=== PATIENT | male | born 1935 | race Hispanic/Latino ===

== ENCOUNTER 2017-11-24 02:36 | Inpatient (IN) | payer MEDICARE ==
[2017-11-24] MEDS ORDERED: ZOFRAN ONE (02:47)
[2017-11-24] MEDS ORDERED: NACL 0.9% 1000 ML 1,000 ML IV ONE ×3 (03:07→06:13)
[2017-11-24] MEDS ORDERED: NACL 0.9% 1000 ML 1,000 ML ONE (03:11)
[2017-11-24] MEDS ORDERED: ZOFRAN IV ONE (03:11)
--- NOTE | 2017-11-24 03:11 | Emergency Department Report ---
ED Abdominal Pain HPI - General Chief Complaint: Nausea/Vomiting/Diarrhea Stated Complaint: V/D Time Seen by Provider: 11/24/17 03:03 Source: patient, EMS Mode of arrival: Stretcher Limitations: No Limitations - History of Present Illness Initial Comments: Patient is a 82 is old male presented today with a chief complaint abdominal pain, crampy, diffuse associated with nausea vomiting and watery diarrhea. Patient denied any fever and no urinary symptoms. MD Complaint: abdominal pain -: Gradual, Last night Location: diffuse Radiation: none Migration to: no migration Severity scale (0 -10): 3 Quality: cramping Consistency: intermittent Associated Symptoms: nausea, vomiting, diarrhea. denies: chills, constipation, dysuria, hematemesis, hematochezia, melena, hematuria, anorexia, syncope - Related Data Home Medications Medication Instructions Recorded Confirmed Last Taken Amlodipine Besylate [Norvasc] 5 mg PO QDAY 11/24/17 11/24/17 Unknown Aspirin [Adult Low Dose Aspirin EC] 81 mg PO QDAY 11/24/17 11/24/17 Unknown Finasteride [Proscar] 5 mg PO QDAY 11/24/17 11/24/17 Unknown Metoprolol [Lopressor TAB] 12.5 mg PO BID 11/24/17 11/24/17 Unknown Nitroglycerin [Nitrostat] 0.4 mg SL Q5M PRN 11/24/17 11/24/17 Unknown Pantoprazole [Protonix TAB] 40 mg PO HS 11/24/17 11/24/17 11/23/17 Simvastatin [Zocor TAB] 40 mg PO DAILY 11/24/17 11/24/17 Unknown Tamsulosin HCl [Flomax] 0.4 mg PO HS 11/24/17 11/24/17 Unknown Previous Rx's Medication Instructions Recorded Last Taken Type Levofloxacin [Levaquin TAB] 500 mg PO DAILY #7 day 11/25/17 Unknown Rx metroNIDAZOLE [Flagyl] 500 mg PO TID #7 day 11/25/17 Unknown Rx Allergies Allergy/AdvReac Type Severity Reaction Status Date / Time No Known Allergies Allergy Verified 11/24/17 03:05 ED Review of Systems ROS: Stated complaint: V/D Other details as noted in HPI Comment: All other systems reviewed and negative Constitutional: denies: chills, fever Respiratory: denies: cough Cardiovascular: denies: chest pain, palpitations, dyspnea on exertion Gastrointestinal: abdominal pain, nausea, vomiting, diarrhea. denies: constipation, hematemesis, melena, hematochezia Musculoskeletal: denies: back pain Neurological: denies: headache, weakness, numbness ED Past Medical Hx - Past Medical History Previous Medical History?: Yes Hx Hypertension: Yes Additional medical history: high cholesterol - Surgical History Past Surgical History?: Yes Hx Coronary Stent: Yes (x3) - Social History Smoking Status: Never Smoker Substance Use Type: Alcohol - Medications Home Medications: Home Medications Medication Instructions Recorded Confirmed Last Taken Type Amlodipine Besylate [Norvasc] 5 mg PO QDAY 11/24/17 11/24/17 Unknown History Aspirin [Adult Low Dose Aspirin EC] 81 mg PO QDAY 11/24/17 11/24/17 Unknown History Finasteride [Proscar] 5 mg PO QDAY 11/24/17 11/24/17 Unknown History Metoprolol [Lopressor TAB] 12.5 mg PO BID 11/24/17 11/24/17 Unknown History Nitroglycerin [Nitrostat] 0.4 mg SL Q5M PRN 11/24/17 11/24/17 Unknown History Pantoprazole [Protonix TAB] 40 mg PO HS 11/24/17 11/24/17 11/23/17 History Simvastatin [Zocor TAB] 40 mg PO DAILY 11/24/17 11/24/17 Unknown History Tamsulosin HCl [Flomax] 0.4 mg PO HS 11/24/17 11/24/17 Unknown History Levofloxacin [Levaquin TAB] 500 mg PO DAILY #7 day 11/25/17 Unknown Rx metroNIDAZOLE [Flagyl] 500 mg PO TID #7 day 11/25/17 Unknown Rx ED Physical Exam - General Limitations: No Limitations General appearance: alert, in no apparent distress - Eye Eye exam: Present: normal appearance - ENT ENT exam: Present: mucous membranes dry - Neck Neck exam: Present: normal inspection, full ROM. Absent: tenderness, meningismus, lymphadenopathy, thyromegaly - Respiratory Respiratory exam: Present: normal lung sounds bilaterally. Absent: respiratory distress, wheezes, rales, rhonchi, stridor, chest wall tenderness, accessory muscle use, decreased breath sounds, prolonged expiratory - Cardiovascular Cardiovascular Exam: Present: tachycardia - GI/Abdominal GI/Abdominal exam: Present: soft, normal bowel sounds. Absent: distended, tenderness, guarding, rebound, rigid, diminished bowel sounds, organomegaly, mass, bruit, pulsatile mass, hernia - Extremities Exam Extremities exam: Present: normal inspection, full ROM, normal capillary refill - Back Exam Back exam: Present: normal inspection, full ROM. Absent: tenderness, CVA tenderness (R), CVA tenderness (L), muscle spasm, paraspinal tenderness - Neurological Exam Neurological exam: Present: alert, oriented X3, CN II-XII intact, normal gait - Skin Skin exam: Present: warm, dry, intact ED Course Vital Signs 11/24/17 11/24/17 11/24/17 03:00 03:10 03:15 Temperature Pulse Rate 129 H 121 H Respiratory 11 L 18 16 Rate Blood Pressure 148/76 139/76 Blood Pressure [Right] O2 Sat by Pulse 97 98 95 Oximetry 11/24/17 11/24/17 11/24/17 03:30 03:45 04:00 Temperature Pulse Rate 110 H 106 H 106 H Respiratory 19 14 21 Rate Blood Pressure 174/75 173/75 164/69 Blood Pressure [Right] O2 Sat by Pulse 97 Oximetry 11/24/17 11/24/17 11/24/17 04:15 04:19 04:30 Temperature 98.1 F Pulse Rate 118 H 110 H Respiratory 20 7 L Rate Blood Pressure 168/83 166/81 Blood Pressure [Right] O2 Sat by Pulse 97 95 Oximetry 11/24/17 11/24/17 11/24/17 04:45 05:00 05:56 Temperature Pulse Rate 123 H Respiratory 14 Rate Blood Pressure 177/84 177/84 177/84 Blood Pressure [Right] O2 Sat by Pulse 98 98 97 Oximetry 11/24/17 11/24/17 11/24/17 06:00 06:15 06:30 Temperature Pulse Rate 118 H 120 H 125 H Respiratory 13 10 L 13 Rate Blood Pressure 163/76 149/78 155/81 Blood Pressure [Right] O2 Sat by Pulse 95 97 94 Oximetry 11/24/17 11/24/17 11/24/17 07:00 07:30 08:00 Temperature Pulse Rate 120 H 115 H 122 H Respiratory 13 11 L 10 L Rate Blood Pressure 152/74 159/72 154/79 Blood Pressure [Right] O2 Sat by Pulse 93 95 95 Oximetry 11/24/17 11/24/17 11/24/17 08:30 09:00 09:30 Temperature Pulse Rate 124 H 106 H 101 H Respiratory 11 L 21 19 Rate Blood Pressure 158/67 162/66 162/66 Blood Pressure [Right] O2 Sat by Pulse 96 96 96 Oximetry 11/24/17 11/24/17 09:59 10:18 Temperature 98.8 F Pulse Rate 114 H Respiratory 18 Rate Blood Pressure 162/70 Blood Pressure 134/66 [Right] O2 Sat by Pulse 99 Oximetry ED Medical Decision Making - Lab Data Result diagrams: 11/25/17 04:55 11/25/17 04:55 - Medical Decision Making Patient care transferred to Dr Francois Maldonado. Critical care attestation.: If time is entered above; I have spent that time in minutes in the direct care of this critically ill patient, excluding procedure time. ED Disposition Clinical Impression: Colitis, Abdominal pain Disposition: OP ADMIT IP TO THIS HOSP Is pt being admited?: Yes Condition: Stable
[2017-11-24 03:29] LABS: Hemoglobin 15.4 gm/dl (11.8-15.2); Mean Corpuscular HGB Conc 33 % (32-34); Mean Corpuscular Hemoglobin 31 pg (28-32); Mean Corpuscular Volume 93 fl (84-94); Platelet Count 236 K/mm3 (140-440); Red Blood Count 4.93 M/mm3 (3.65-5.03); Red Cell Distribution Width 13.9 % (13.2-15.2); White Blood Count 14.2 K/mm3 (4.5-11.0)
[2017-11-24 03:50] LABS: Alanine Aminotransferase 18 units/L (7-56); Albumin 4.2 g/dL (3.9-5); Albumin/Globulin Ratio 1.8 %; Alkaline Phosphatase 82 units/L (35-129); BUN/Creatinine Ratio 15; Blood Urea Nitrogen 16 mg/dL (9-20); Carbon Dioxide 23 mmol/L (22-30); Glucose 172 mg/dL (75-100); Lipase 42 units/L (13-60); Total Protein 6.6 g/dL (6.3-8.2)
[2017-11-24 03:51] LABS: Anion Gap 21 mmol/L; Chloride 102.7 mmol/L (98-107); Potassium 4.2 mmol/L (3.6-5.0); Sodium 142 mmol/L (137-145)
[2017-11-24 04:01] LABS: Bilirubin,Direct < 0.2 mg/dL (0-0.2); Bilirubin,Indirect 0.3 mg/dL
[2017-11-24] MEDS ORDERED: NACL ONE (04:34)
[2017-11-24 04:44] LABS: Bilirubin,Urine NEG (Negative); Blood,Urine NEG (Negative); Ketones,Urine NEG (Negative); Leukocyte Esterase,Urine NEG (Negative); Nitrite,Urine NEG (Negative); Protein,Urine <15 mg/dL mg/dL (Negative); Urobilinogen,Urine < 2.0 mg/dL (<2.0)
[2017-11-24] MEDS ORDERED: REGLAN ONE (04:49)
[2017-11-24] MEDS ORDERED: REGLAN IV ONE (04:55)
[2017-11-24] MEDS ORDERED: ZOSYN/NS 3.375GM/50ML 3.375 GM/50 ML BAG IV SCH (06:00)
--- NOTE | 2017-11-24 06:03 | Cat Scan Report ---
FINAL REPORT EXAM: CT ABDOMEN PELVIS W CON HISTORY: abdominal pain TECHNIQUE: CT images are acquired through the Abdomen and Pelvis arterial and delayed phases following intravenous administration of contrast. Transaxial, coronal and sagittal reformations are provided. PRIORS: 06/04/2015 FINDINGS: Partially visualized intrathoracic contents are unremarkable. A few scattered subcentimeter hepatic cysts are unchanged from prior. 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 The liver, gallbladder, pancreas, spleen, and adrenal glands are otherwise unremarkable. Kidneys show no worrisome lesions, hydronephrosis, or calculi. Mild right upper pole renal cortical scarring/irregularity. Mild prostatic mass effect on the base of the urinary bladder. Urinary bladder is otherwise unremarkable. Small and large bowel are normal in caliber. There fluid in the cecum and ascending colon and mild mucosal thickening is suggested in the ascending colon. No pericolonic stranding or edema. The an 8 x 4 millimeter lymph node within the mesorectal fat may be slightly more prominent compared to prior on axial series 3, image 167. Suggested mild wall thickening and irregularity at the left lateral aspect of the rectum on axial images 167-169. Appendix is normal. No free air, free fluid, or mesenteric lymphadenopathy identified. Aorta is normal in course and caliber with scattered atherosclerosis. Superficial soft tissues are unremarkable. No acute or aggressive appearing skeletal findings. IMPRESSION: Fluid in the cecum and ascending colon with mild suggested mucosal thickening in the ascending colon may be infectious. No findings of abena colitis. No pneumoperitoneum or abscess formation. Mild rectal wall thickening with adjacent prominent lymph node in the mesorectal fat. Differential diagnosis includes malignancy. Colonoscopy is suggested if not recently performed. Notification initiated via [employer] behavior support specialist immediately following this dictation on 11/24/2017.
[2017-11-24 06:26] LABS: Basophils % (Manual) 0 % (0.0-1.8); Blastocytes % (Manual) 0 %; Eosinophils % (Manual) 0 % (0.0-4.3)
[2017-11-24 06:28] LABS: Anisocytosis RARE
[2017-11-24 06:29] LABS: Diff Status Complete; Platelet Estimate Consistent w Auto
--- NOTE | 2017-11-24 06:35 | Emergency Department Report ---
Blank Doc - Documentation Documentation: I was asked by my colleague, Dr. Mcmillan, to follow-up with patient's CT scan results of the abdomen and pelvis. The results came back showing that there is some signs of possible colitis that also could be infectious in etiology. The patient also has some abdominal/pelvic lymphadenopathy and they recommend that a colonoscopy should be done to rule out malignancy. I went in to see the patient and to give him the CT scan results. However the patient continues to have moderate tachycardia into the 120s. It may be secondary to pain or dehydration but with these abnormal vitals, do not feel comfortable discharging the patient home. More IV fluid resuscitation has been added and the patient will be admitted to the hospital for further evaluation and treatment.
[2017-11-24] MEDS ORDERED: ALUM-MAG HYDROX-SIMETH 200-200-20MG/5ML ONE (07:47)
[2017-11-24] MEDS ORDERED: LIDOCAINE VISCOUS 2% ONE (07:47)
[2017-11-24] MEDS ORDERED: ALUM-MAG HYDROX-SIMETH 200-200-20MG/5ML PO ONE (07:50)
[2017-11-24] MEDS ORDERED: LIDOCAINE VISCOUS 2% PO ONE (07:50)
[2017-11-24] MEDS ORDERED: MORPHINE IV PRN (08:15)
--- NOTE | 2017-11-24 08:15 | History and Physical Report ---
<LEONID BUTLER - Last Filed: 11/24/17 10:37> History of Present Illness Date of examination: 11/24/17 Date of admission: 11/24/2017 Chief complaint: abdominal pain nausea and vomiting History of present illness: Patient is a 82 years old male with past medical histroy of hypertension and hyperlipidemia who presents to the emergency department for diarrhea, nausea and vomiting.Patient reports having non stop intermittent generalized abdominal pain that initially felt like gas pains but it has now progressed to being nearly constant; associated with nausea vomiting and watery diarrhea.The pain is described as a constant dull, diffuse pain that intermittently becomes sharp and well localized. The sharp pain tends to occur in different locations at different times. The intensity of the pain has been increasing since this morning and on pain scale she now rates the pain at 5 out of 10; worse with palpation. He denies fever, wt loss, CP, dizziness, bloody stools, dysuria, hematemesis, hematochezia, hematuria, anorexia, syncope. Past History Past Medical History: hypertension, hyperlipidemia Past Surgical History: Other (stent placement ) Social history: denies: smoking, alcohol abuse Family history: hypertension Medications and Allergies Allergies Allergy/AdvReac Type Severity Reaction Status Date / Time No Known Allergies Allergy Verified 11/24/17 03:05 Home Medications Medication Instructions Recorded Confirmed Last Taken Type Amlodipine Besylate [Norvasc] 5 mg PO QDAY 11/24/17 11/24/17 Unknown History Aspirin [Adult Low Dose Aspirin EC] 81 mg PO QDAY 11/24/17 11/24/17 Unknown History Finasteride [Proscar] 5 mg PO QDAY 11/24/17 11/24/17 Unknown History Metoprolol [Lopressor TAB] 12.5 mg PO BID 11/24/17 11/24/17 Unknown History Nitroglycerin [Nitrostat] 0.4 mg SL Q5M PRN 11/24/17 11/24/17 Unknown History Pantoprazole [Protonix TAB] 40 mg PO HS 11/24/17 11/24/17 11/23/17 History Simvastatin [Zocor TAB] 40 mg PO DAILY 11/24/17 11/24/17 Unknown History Tamsulosin HCl [Flomax] 0.4 mg PO HS 11/24/17 11/24/17 Unknown History Active Meds: Active Medications Piperacillin Sod/Tazobactam Sod (Zosyn/Ns 3.375gm/50ml) 3.375 gm in 50 mls @ 100 mls/hr IV Q6HR [place] Last Admin: 11/24/17 06:15 Dose: 100 mls/hr Sodium Chloride (Nacl 0.9% 1000 Ml) 1,000 mls @ 250 mls/hr IV ONCE ONE Stop: 11/24/17 10:12 Review of Systems Constitutional: no weight loss, no weight gain, no fever, no chills Ears, nose, mouth and throat: no nasal congestion, no nasal discharge Cardiovascular: no chest pain, no syncope, no lightheadedness, no shortness of breath Respiratory: no shortness of breath, no dyspnea on exertion Gastrointestinal: nausea, vomiting, diarrhea, no constipation, no hematemesis, no melena, no hematochezia, no loss of appetite Genitourinary Male: no hematuria, no flank pain Rectal: no incontinence, no bleeding Musculoskeletal: no neck pain, no shooting arm pain, no arm numbness/tingling Integumentary: no wounds, no jaundice, no boils Neurological: no weakness, no parathesias, no numbness Psychiatric: no anxiety, no memory loss, no sleep disturbances Endocrine: no cold intolerance, no heat intolerance, no polyphagia Hematologic/Lymphatic: no easy bruising, no easy bleeding Allergic/Immunologic: no urticaria, no allergic rhinitis Exam - Constitutional Vitals: Temp Pulse Resp BP Pulse Ox 98.1 F 125 H 13 155/81 94 11/24/17 04:19 11/24/17 06:30 11/24/17 06:30 11/24/17 06:30 11/24/17 06:30 General appearance: Present: no acute distress - EENT Eyes: Present: PERRL ENT: hearing intact - Neck Neck: Present: supple - Respiratory Respiratory effort: normal Respiratory: bilateral: CTA - Cardiovascular Heart rate: 120 (tachycardia) Rhythm: regular Heart Sounds: Present: S1 & S2 - Abdominal General gastrointestinal: Present: soft, non-tender Localized gastrointestinal: tender: RLQ, LLQ Male genitourinary: Present: deferred - Rectal Rectal Exam: deferred - Integumentary Integumentary: Present: clear, warm, dry - Musculoskeletal Musculoskeletal: strength equal bilaterally - Psychiatric Psychiatric: appropriate mood/affect - Neurologic Neurologic: CNII-XII intact - Allied Health Allied health notes reviewed: nursing Results - Labs CBC & Chem 7: 11/24/17 03:15 11/24/17 03:15 Labs: Laboratory Last Values WBC 14.2 K/mm3 (4.5-11.0) H 11/24/17 03:15 RBC 4.93 M/mm3 (3.65-5.03) 11/24/17 03:15 Hgb 15.4 gm/dl (11.8-15.2) H 11/24/17 03:15 Hct 46.0 % (35.5-45.6) H 11/24/17 03:15 MCV 93 fl (84-94) 11/24/17 03:15 MCH 31 pg (28-32) 11/24/17 03:15 MCHC 33 % (32-34) 11/24/17 03:15 RDW 13.9 % (13.2-15.2) 11/24/17 03:15 Plt Count 236 K/mm3 (140-440) 11/24/17 03:15 Add Manual Diff Complete 11/24/17 03:15 Total Counted 100 11/24/17 03:15 Seg Neutrophils % Cleaners 11/24/17 03:15 Seg Neuts % (Manual) 93.0 % (40.0-70.0) H 11/24/17 03:15 Band Neutrophils % 0 % 11/24/17 03:15 Lymphocytes % (Manual) 3.0 % (13.4-35.0) L 11/24/17 03:15 Reactive Lymphs % (Man) 0 % 11/24/17 03:15 Monocytes % (Manual) 4.0 % (0.0-7.3) 11/24/17 03:15 Eosinophils % (Manual) 0 % (0.0-4.3) 11/24/17 03:15 Basophils % (Manual) 0 % (0.0-1.8) 11/24/17 03:15 Metamyelocytes % 0 % 11/24/17 03:15 Myelocytes % 0 % 11/24/17 03:15 Promyelocytes % 0 % 11/24/17 03:15 Blast Cells % 0 % 11/24/17 03:15 Nucleated RBC % Not Reportable 11/24/17 03:15 Seg Neutrophils # Man 13.2 K/mm3 (1.8-7.7) H 11/24/17 03:15 Band Neutrophils # 0.0 K/mm3 11/24/17 03:15 Lymphocytes # (Manual) 0.4 K/mm3 (1.2-5.4) L 11/24/17 03:15 Abs React Lymphs (Man) 0.0 K/mm3 11/24/17 03:15 Monocytes # (Manual) 0.6 K/mm3 (0.0-0.8) 11/24/17 03:15 Eosinophils # (Manual) 0.0 K/mm3 (0.0-0.4) 11/24/17 03:15 Basophils # (Manual) 0.0 K/mm3 (0.0-0.1) 11/24/17 03:15 Metamyelocytes # 0.0 K/mm3 11/24/17 03:15 Myelocytes # 0.0 K/mm3 11/24/17 03:15 Promyelocytes # 0.0 K/mm3 11/24/17 03:15 Blast Cells # 0.0 K/mm3 11/24/17 03:15 WBC Morphology Not Reportable 11/24/17 03:15 Hypersegmented Neuts Not Reportable 11/24/17 03:15 Hyposegmented Neuts Not Reportable 11/24/17 03:15 Hypogranular Neuts Not Reportable 11/24/17 03:15 Smudge Cells Not Reportable 11/24/17 03:15 Toxic Granulation Not Reportable 11/24/17 03:15 Toxic Vacuolation Not Reportable 11/24/17 03:15 Dohle Bodies Not Reportable 11/24/17 03:15 Pelger-Huet Anomaly Not Reportable 11/24/17 03:15 Dari Rods Not Reportable 11/24/17 03:15 Platelet Estimate Consistent w auto 11/24/17 03:15 Clumped Platelets Not Reportable 11/24/17 03:15 Plt Clumps, EDTA Not Reportable 11/24/17 03:15 Large Platelets Not Reportable 11/24/17 03:15 Giant Platelets Not Reportable 11/24/17 03:15 Platelet Satelliting Not Reportable 11/24/17 03:15 Plt Morphology Comment Not Reportable 11/24/17 03:15 RBC Morphology Not Reportable 11/24/17 03:15 Dimorphic RBCs Not Reportable 11/24/17 03:15 Polychromasia Not Reportable 11/24/17 03:15 Hypochromasia Not Reportable 11/24/17 03:15 Poikilocytosis Not Reportable 11/24/17 03:15 Anisocytosis Rare 11/24/17 03:15 Microcytosis Not Reportable 11/24/17 03:15 Macrocytosis Not Reportable 11/24/17 03:15 Spherocytes Not Reportable 11/24/17 03:15 Pappenheimer Bodies Not Reportable 11/24/17 03:15 Sickle Cells Not Reportable 11/24/17 03:15 Target Cells Not Reportable 11/24/17 03:15 Tear Drop Cells Not Reportable 11/24/17 03:15 Ovalocytes Not Reportable 11/24/17 03:15 Helmet Cells Not Reportable 11/24/17 03:15 [place] Bodies Not Reportable 11/24/17 03:15 [place] Rings Not Reportable 11/24/17 03:15 Aries Cells Not Reportable 11/24/17 03:15 Bite Cells Not Reportable 11/24/17 03:15 Crenated Cell Not Reportable 11/24/17 03:15 Elliptocytes Not Reportable 11/24/17 03:15 Acanthocytes (Spur) Not Reportable 11/24/17 03:15 Rouleaux Not Reportable 11/24/17 03:15 Hemoglobin C Crystals Not Reportable 11/24/17 03:15 Schistocytes Not Reportable 11/24/17 03:15 Malaria parasites Not Reportable 11/24/17 03:15 Javy Bodies Not Reportable 11/24/17 03:15 Hem Pathologist Commnt No 11/24/17 03:15 Sodium 142 mmol/L (137-145) 11/24/17 03:15 Potassium 4.2 mmol/L (3.6-5.0) 11/24/17 03:15 Chloride 102.7 mmol/L (98-107) 11/24/17 03:15 Carbon Dioxide 23 mmol/L (22-30) 11/24/17 03:15 Anion Gap 21 mmol/L 11/24/17 03:15 BUN 16 mg/dL (9-20) 11/24/17 03:15 Creatinine 1.1 mg/dL (0.8-1.5) 11/24/17 03:15 Estimated GFR > 60 ml/min 11/24/17 03:15 BUN/Creatinine Ratio 15 % 11/24/17 03:15 Glucose 172 mg/dL (75-100) H 11/24/17 03:15 Calcium 9.0 mg/dL (8.4-10.2) 11/24/17 03:15 Total Bilirubin 0.50 mg/dL (0.1-1.2) 11/24/17 03:15 Direct Bilirubin < 0.2 mg/dL (0-0.2) 11/24/17 03:15 Indirect Bilirubin 0.3 mg/dL 11/24/17 03:15 AST 19 units/L (5-40) 11/24/17 03:15 ALT 18 units/L (7-56) 11/24/17 03:15 Alkaline Phosphatase 82 units/L (35-129) 11/24/17 03:15 Total Protein 6.6 g/dL (6.3-8.2) 11/24/17 03:15 Albumin 4.2 g/dL (3.9-5) 11/24/17 03:15 Albumin/Globulin Ratio 1.8 % 11/24/17 03:15 Lipase 42 units/L (13-60) 11/24/17 03:15 Urine Color Yellow (Yellow) 11/24/17 04:25 Urine Turbidity Clear (Clear) 11/24/17 04:25 Urine pH 6.0 (5.0-7.0) 11/24/17 04:25 Ur Specific [place] 1.012 (1.003-1.030) 11/24/17 04:25 Urine Protein <15 mg/dl mg/dL (Negative) 11/24/17 04:25 Urine Glucose (UA) Neg mg/dL (Negative) 11/24/17 04:25 Urine Ketones Neg mg/dL (Negative) 11/24/17 04:25 Urine Blood Neg (Negative) 11/24/17 04:25 Urine Nitrite Neg (Negative) 11/24/17 04:25 Urine Bilirubin Neg (Negative) 11/24/17 04:25 Urine Urobilinogen < 2.0 mg/dL (<2.0) 11/24/17 04:25 Ur Leukocyte Esterase Neg (Negative) 11/24/17 04:25 Urine WBC (Auto) 2.0 /HPF (0.0-6.0) 11/24/17 04:25 Urine RBC (Auto) 2.0 /HPF (0.0-6.0) 11/24/17 04:25 U Epithel Cells (Auto) < 1.0 /HPF (0-13.0) 11/24/17 04:25 - Imaging and Cardiology CT scan - abdomen: image reviewed (fluid in the cecum and ascending colon with mild suggested mucosal thickening in the ascending colon may be infectious.mild rectal wall thickening with adjacent prominent lymph node in the mesorectal fat. ) Assessment and Plan Assessment and plan: Patient is a 82 years old male with past medical histroy of hypertension and hyperlipidemia who presents to the emergency department for diarrhea, nausea and vomiting.Patient reports having non stop intermittent generalized abdominal pain that initially felt like gas pains but it has now progressed to being nearly constant; associated with nausea vomiting and watery diarrhea. Sepsis Patietn meet sepsis criteria with tachycardia, leukocytosis Blood cultres and lactic acid collected prior antibiotic CT scan of the abdomen and pelvis showed that there is some signs of possible colitis that also could be infectious in etiology. Aggressive fluid resuscitation Initiated IV empiric Flagyl and Levaquin Supportive care Intractable vomiting with nausea Most likely due to colitis Started on PPI GI consult for possible EGD and colonoscopy Possible colitis CT scan of the abdomen and pelvis showed that there is some signs of possible colitis that also could be infectious in etiology. Started on Flagyl and Levaquin Diarrhea Most likely due to colitis Started Flagyl and Levaquin IV fluid hydration Abdominal lymphadenopathy The patient also has some abdominal/pelvic lymphadenopathy and they recommend that a colonoscopy should be done to rule out malignancy. GI consulted for possible colonoscopy Hypertension Review of antihypertensive medication IV hydralazine for >160 Closely monitor Blood pressure hyperlipidemia Resume home antilipid agents GERD Started on Protonix DVT prophylaxis Lovenox Advance Directives: Yes VTE prophylaxis?: Chemical Contraindication Mechanical VTE Prophylaxis: Treatment Not Indicated Plan of care discussed with patient/family: Yes <EVANGELINA ALANIS R - Last Filed: 11/25/17 00:33> History of Present Illness Date of admission: 11/24/17 08:15 Medications and Allergies Active Meds: Active Medications Acetaminophen (Tylenol) 650 mg PO Q4H PRN PRN Reason: Pain MILD(1-3)/Fever >100.5/SAENZ Acetaminophen/Codeine Phosphate (Tylenol #3) 1 tab PO Q6H PRN PRN Reason: Pain Al Hydrox/Mg Hydrox/Simethicone (Alum-Mag Hydrox-Simeth [phone]/5ml) 30 ml PO Q6HR PRN PRN Reason: Indigestion Last Admin: 11/24/17 20:18 Dose: 30 ml Clopidogrel Bisulfate (Plavix) 75 mg PO QDAY [facility] [place] Last Admin: 11/24/17 10:20 Dose: Not Given Enoxaparin Sodium (Lovenox) 40 mg SUB-Q QDAY [facility] [place] Last Admin: 11/24/17 10:20 Dose: 40 mg Sodium Chloride (Nacl 0.9% 1000 Ml) 1,000 mls @ 100 mls/hr IV DIRECT [place] Levofloxacin/Dextrose (Levaquin 500mg/100ml) 500 mg in 100 mls @ 100 mls/hr IV Q24HR [facility] [place] PRN Reason: Protocol Last Admin: 11/24/17 10:19 Dose: 100 mls/hr Metronidazole (Flagyl 500 Mg/100 Ml) 500 mg in 100 mls @ 100 mls/hr IV Q6HR [facility] [place] Last Admin: 11/24/17 17:25 Dose: 100 mls/hr Loperamide HCl (Imodium) 2 mg PO Q2H PRN PRN Reason: Diarrhea Last Admin: 11/24/17 20:18 Dose: 2 mg Losartan Potassium (Cozaar) 25 mg PO QDAY [facility] [place] Last Admin: 11/24/17 10:18 Dose: 25 mg Methocarbamol (Robaxin) 500 mg PO BID [facility] [place] Last Admin: 11/24/17 21:23 Dose: 500 mg Morphine Sulfate (Morphine) 2 mg IV Q4H PRN PRN Reason: Pain, Moderate (4-6) Ondansetron HCl (Zofran) 4 mg IV Q4H PRN PRN Reason: Nausea And Vomiting Last Admin: 11/24/17 18:13 Dose: 4 mg Oxybutynin Chloride (Ditropan) 5 mg PO BID [facility] [place] Last Admin: 11/24/17 21:23 Dose: 5 mg Pantoprazole Sodium (Protonix) 40 mg IV DAILY [facility] [place] Zolpidem Tartrate (Ambien) 5 mg PO QHS PRN PRN Reason: Sleep Last Admin: 11/24/17 21:23 Dose: 5 mg Exam - Constitutional Vitals: Temp Pulse Resp BP Pulse Ox 98.7 F 102 H 18 155/70 93 11/24/17 19:07 11/24/17 19:07 11/24/17 19:07 11/24/17 19:07 11/24/17 19:07 Results - Labs CBC & Chem 7: 11/24/17 03:15 11/24/17 03:15 Labs: Laboratory Last Values WBC 14.2 K/mm3 (4.5-11.0) H 11/24/17 03:15 RBC 4.93 M/mm3 (3.65-5.03) 11/24/17 03:15 Hgb 15.4 gm/dl (11.8-15.2) H 11/24/17 03:15 Hct 46.0 % (35.5-45.6) H 11/24/17 03:15 MCV 93 fl (84-94) 11/24/17 03:15 MCH 31 pg (28-32) 11/24/17 03:15 MCHC 33 % (32-34) 11/24/17 03:15 RDW 13.9 % (13.2-15.2) 11/24/17 03:15 Plt Count 236 K/mm3 (140-440) 11/24/17 03:15 Add Manual Diff Complete 11/24/17 03:15 Total Counted 100 11/24/17 03:15 Seg Neutrophils % Cleaners 11/24/17 03:15 Seg Neuts % (Manual) 93.0 % (40.0-70.0) H 11/24/17 03:15 Band Neutrophils % 0 % 11/24/17 03:15 Lymphocytes % (Manual) 3.0 % (13.4-35.0) L 11/24/17 03:15 Reactive Lymphs % (Man) 0 % 11/24/17 03:15 Monocytes % (Manual) 4.0 % (0.0-7.3) 11/24/17 03:15 Eosinophils % (Manual) 0 % (0.0-4.3) 11/24/17 03:15 Basophils % (Manual) 0 % (0.0-1.8) 11/24/17 03:15 Metamyelocytes % 0 % 11/24/17 03:15 Myelocytes % 0 % 11/24/17 03:15 Promyelocytes % 0 % 11/24/17 03:15 Blast Cells % 0 % 11/24/17 03:15 Nucleated RBC % Not Reportable 11/24/17 03:15 Seg Neutrophils # Man 13.2 K/mm3 (1.8-7.7) H 11/24/17 03:15 Band Neutrophils # 0.0 K/mm3 11/24/17 03:15 Lymphocytes # (Manual) 0.4 K/mm3 (1.2-5.4) L 11/24/17 03:15 Abs React Lymphs (Man) 0.0 K/mm3 11/24/17 03:15 Monocytes # (Manual) 0.6 K/mm3 (0.0-0.8) 11/24/17 03:15 Eosinophils # (Manual) 0.0 K/mm3 (0.0-0.4) 11/24/17 03:15 Basophils # (Manual) 0.0 K/mm3 (0.0-0.1) 11/24/17 03:15 Metamyelocytes # 0.0 K/mm3 11/24/17 03:15 Myelocytes # 0.0 K/mm3 11/24/17 03:15 Promyelocytes # 0.0 K/mm3 11/24/17 03:15 Blast Cells # 0.0 K/mm3 11/24/17 03:15 WBC Morphology Not Reportable 11/24/17 03:15 Hypersegmented Neuts Not Reportable 11/24/17 03:15 Hyposegmented Neuts Not Reportable 11/24/17 03:15 Hypogranular Neuts Not Reportable 11/24/17 03:15 Smudge Cells Not Reportable 11/24/17 03:15 Toxic Granulation Not Reportable 11/24/17 03:15 Toxic Vacuolation Not Reportable 11/24/17 03:15 Dohle Bodies Not Reportable 11/24/17 03:15 Pelger-Huet Anomaly Not Reportable 11/24/17 03:15 Dari Rods Not Reportable 11/24/17 03:15 Platelet Estimate Consistent w auto 11/24/17 03:15 Clumped Platelets Not Reportable 11/24/17 03:15 Plt Clumps, EDTA Not Reportable 11/24/17 03:15 Large Platelets Not Reportable 11/24/17 03:15 Giant Platelets Not Reportable 11/24/17 03:15 Platelet Satelliting Not Reportable 11/24/17 03:15 Plt Morphology Comment Not Reportable 11/24/17 03:15 RBC Morphology Not Reportable 11/24/17 03:15 Dimorphic RBCs Not Reportable 11/24/17 03:15 Polychromasia Not Reportable 11/24/17 03:15 Hypochromasia Not Reportable 11/24/17 03:15 Poikilocytosis Not Reportable 11/24/17 03:15 Anisocytosis Rare 11/24/17 03:15 Microcytosis Not Reportable 11/24/17 03:15 Macrocytosis Not Reportable 11/24/17 03:15 Spherocytes Not Reportable 11/24/17 03:15 Pappenheimer Bodies Not Reportable 11/24/17 03:15 Sickle Cells Not Reportable 11/24/17 03:15 Target Cells Not Reportable 11/24/17 03:15 Tear Drop Cells Not Reportable 11/24/17 03:15 Ovalocytes Not Reportable 11/24/17 03:15 Helmet Cells Not Reportable 11/24/17 03:15 [place] Bodies Not Reportable 11/24/17 03:15 [place] Rings Not Reportable 11/24/17 03:15 Aries Cells Not Reportable 11/24/17 03:15 Bite Cells Not Reportable 11/24/17 03:15 Crenated Cell Not Reportable 11/24/17 03:15 Elliptocytes Not Reportable 11/24/17 03:15 Acanthocytes (Spur) Not Reportable 11/24/17 03:15 Rouleaux Not Reportable 11/24/17 03:15 Hemoglobin C Crystals Not Reportable 11/24/17 03:15 Schistocytes Not Reportable 11/24/17 03:15 Malaria parasites Not Reportable 11/24/17 03:15 Javy Bodies Not Reportable 11/24/17 03:15 Hem Pathologist Commnt No 11/24/17 03:15 Sodium 142 mmol/L (137-145) 11/24/17 03:15 Potassium 4.2 mmol/L (3.6-5.0) 11/24/17 03:15 Chloride 102.7 mmol/L (98-107) 11/24/17 03:15 Carbon Dioxide 23 mmol/L (22-30) 11/24/17 03:15 Anion Gap 21 mmol/L 11/24/17 03:15 BUN 16 mg/dL (9-20) 11/24/17 03:15 Creatinine 1.1 mg/dL (0.8-1.5) 11/24/17 03:15 Estimated GFR > 60 ml/min 11/24/17 03:15 BUN/Creatinine Ratio 15 % 11/24/17 03:15 Glucose 172 mg/dL (75-100) H 11/24/17 03:15 Lactic Acid 2.10 mmol/L (0.7-2.0) H* 11/24/17 10:52 Calcium 9.0 mg/dL (8.4-10.2) 11/24/17 03:15 Total Bilirubin 0.50 mg/dL (0.1-1.2) 11/24/17 03:15 Direct Bilirubin < 0.2 mg/dL (0-0.2) 11/24/17 03:15 Indirect Bilirubin 0.3 mg/dL 11/24/17 03:15 AST 19 units/L (5-40) 11/24/17 03:15 ALT 18 units/L (7-56) 11/24/17 03:15 Alkaline Phosphatase 82 units/L (35-129) 11/24/17 03:15 Total Protein 6.6 g/dL (6.3-8.2) 11/24/17 03:15 Albumin 4.2 g/dL (3.9-5) 11/24/17 03:15 Albumin/Globulin Ratio 1.8 % 11/24/17 03:15 Lipase 42 units/L (13-60) 11/24/17 03:15 Urine Color Yellow (Yellow) 11/24/17 04:25 Urine Turbidity Clear (Clear) 11/24/17 04:25 Urine pH 6.0 (5.0-7.0) 11/24/17 04:25 Ur Specific [place] 1.012 (1.003-1.030) 11/24/17 04:25 Urine Protein <15 mg/dl mg/dL (Negative) 11/24/17 04:25 Urine Glucose (UA) Neg mg/dL (Negative) 11/24/17 04:25 Urine Ketones Neg mg/dL (Negative) 11/24/17 04:25 Urine Blood Neg (Negative) 11/24/17 04:25 Urine Nitrite Neg (Negative) 11/24/17 04:25 Urine Bilirubin Neg (Negative) 11/24/17 04:25 Urine Urobilinogen < 2.0 mg/dL (<2.0) 11/24/17 04:25 Ur Leukocyte Esterase Neg (Negative) 11/24/17 04:25 Urine WBC (Auto) 2.0 /HPF (0.0-6.0) 11/24/17 04:25 Urine RBC (Auto) 2.0 /HPF (0.0-6.0) 11/24/17 04:25 U Epithel Cells (Auto) < 1.0 /HPF (0-13.0) 11/24/17 04:25 Assessment and Plan Assessment and plan: I saw and evaluated the patient. I agree with the findings and the plan of care as documented in the Nurse Practitioner's~note .
[2017-11-24] MEDS ORDERED: ZOFRAN IV PRN (08:22)
[2017-11-24] MEDS ORDERED: NACL 0.9% 1000 ML 1,000 ML IV SCH (09:00)
[2017-11-24] MEDS ORDERED: COZAAR ONE (09:50)
[2017-11-24] MEDS ORDERED: ZOFRAN IM PRN (10:12)
[2017-11-24] MEDS: COZAAR PO SCH (10:18)
[2017-11-24] MEDS: LEVAQUIN 500MG/100ML 500 MG/100 ML BAG IV SCH (10:19)
[2017-11-24] MEDS: PLAVIX PO SCH (10:20)
[2017-11-24] MEDS: LOVENOX SUB-Q SCH (10:20)
[2017-11-24] MEDS ORDERED: TYLENOL PO PRN (11:00)
--- NOTE | 2017-11-24 11:24 | Gastroenterology Consultation ---
History of Present Illness - Reason for Consult Consult date: 11/24/17 N/V/D and abdominal pain Requesting physician: LEONID BUTLER - History of Present Illness Mr Casiano is an 82 y/o male admitted yesterday with and acute onset of N/V and diarrhea. He also reports some abdominal discomfort. His symptoms all began yesterday. CT on admission notable for mild mucosal wall thickening and fluid within the colon suggestive of possible colitis. Of note, there is also some rectal thickening and a prominent lymph node in rectal area. The patient reports his last colonoscopy was 7 years ago, normal with Dr. Vang. No blood per stool. PMH significant for HLD, HTN. He was placed on empiric Flagyl and Levaquin. Past History Past Medical History: hypertension, hyperlipidemia Past Surgical History: Other (stent placement ) Social history: denies: smoking, alcohol abuse Family history: hypertension Medications and Allergies Allergies Allergy/AdvReac Type Severity Reaction Status Date / Time No Known Allergies Allergy Verified 11/24/17 03:05 Home Medications Medication Instructions Recorded Confirmed Last Taken Type Amlodipine Besylate [Norvasc] 5 mg PO QDAY 11/24/17 11/24/17 Unknown History Aspirin [Adult Low Dose Aspirin EC] 81 mg PO QDAY 11/24/17 11/24/17 Unknown History Finasteride [Proscar] 5 mg PO QDAY 11/24/17 11/24/17 Unknown History Metoprolol [Lopressor TAB] 12.5 mg PO BID 11/24/17 11/24/17 Unknown History Nitroglycerin [Nitrostat] 0.4 mg SL Q5M PRN 11/24/17 11/24/17 Unknown History Pantoprazole [Protonix TAB] 40 mg PO HS 11/24/17 11/24/17 11/23/17 History Simvastatin [Zocor TAB] 40 mg PO DAILY 11/24/17 11/24/17 Unknown History Tamsulosin HCl [Flomax] 0.4 mg PO HS 11/24/17 11/24/17 Unknown History Active Meds: Active Medications Acetaminophen (Tylenol) 650 mg PO Q4H PRN PRN Reason: Pain MILD(1-3)/Fever >100.5/SAENZ Acetaminophen/Codeine Phosphate (Tylenol #3) 1 tab PO Q6H PRN PRN Reason: Pain Clopidogrel Bisulfate (Plavix) 75 mg PO QDAY [facility] Last Admin: 11/24/17 10:20 Dose: Not Given Enoxaparin Sodium (Lovenox) 40 mg SUB-Q QDAY [facility] Last Admin: 11/24/17 10:20 Dose: 40 mg Piperacillin Sod/Tazobactam Sod (Zosyn/Ns 3.375gm/50ml) 3.375 gm in 50 mls @ 100 mls/hr IV Q6HR [facility] Last Admin: 11/24/17 06:15 Dose: 100 mls/hr Sodium Chloride (Nacl 0.9% 1000 Ml) 1,000 mls @ 100 mls/hr IV DIRECT [facility] Levofloxacin/Dextrose (Levaquin 500mg/100ml) 500 mg in 100 mls @ 100 mls/hr IV Q24HR [facility] PRN Reason: Protocol Last Admin: 11/24/17 10:19 Dose: 100 mls/hr Metronidazole (Flagyl 500 Mg/100 Ml) 500 mg in 100 mls @ 100 mls/hr IV Q6HR [facility] Losartan Potassium (Cozaar) 25 mg PO QDAY [facility] Last Admin: 11/24/17 10:18 Dose: 25 mg Methocarbamol (Robaxin) 500 mg PO BID [facility] Morphine Sulfate (Morphine) 2 mg IV Q4H PRN PRN Reason: Pain, Moderate (4-6) Ondansetron HCl (Zofran) 4 mg IV Q4H PRN PRN Reason: Nausea And Vomiting Oxybutynin Chloride (Ditropan) 5 mg PO BID [facility] Pantoprazole Sodium (Protonix) 40 mg IV DAILY [facility] Review of Systems - Review of Systems All systems: negative Gastrointestinal: abdominal pain, nausea, vomiting, diarrhea Exam - Constitutional Vital Signs: Temp Pulse Resp BP Pulse Ox 98.8 F 114 H 18 162/70 99 11/24/17 09:59 11/24/17 09:59 11/24/17 09:59 11/24/17 10:18 11/24/17 09:59 General appearance: no acute distress - EENT Eyes: EOM intact ENT: hearing intact - Neck Neck: supple - Respiratory Respiratory: bilateral: CTA - Cardiovascular Rhythm: regular Heart Sounds: Present: S1 & S2 - Gastrointestinal General gastrointestinal: Present: soft, non-tender, non-distended, normal bowel sounds - Integumentary Integumentary: Present: warm, dry - Neurologic Neurological: alert and oriented x3 - Psychiatric Psychiatric: appropriate mood/affect, cooperative - Labs CBC & Chem 7: 11/24/17 03:15 11/24/17 03:15 Lab Results: Laboratory Results - last 24 hr 11/24/17 11/24/17 11/24/17 03:15 03:15 04:25 WBC 14.2 H RBC 4.93 Hgb 15.4 H Hct 46.0 H MCV 93 MCH 31 MCHC 33 RDW 13.9 Plt Count 236 Add Manual Diff Complete Total Counted 100 Seg Neutrophils % Special Projects Manager Seg Neuts % (Manual) 93.0 H Band Neutrophils % 0 Lymphocytes % (Manual) 3.0 L Reactive Lymphs % (Man) 0 Monocytes % (Manual) 4.0 Eosinophils % (Manual) 0 Basophils % (Manual) 0 Metamyelocytes % 0 Myelocytes % 0 Promyelocytes % 0 Blast Cells % 0 Nucleated RBC % Not Reportable Seg Neutrophils # Man 13.2 H Band Neutrophils # 0.0 Lymphocytes # (Manual) 0.4 L Abs React Lymphs (Man) 0.0 Monocytes # (Manual) 0.6 Eosinophils # (Manual) 0.0 Basophils # (Manual) 0.0 Metamyelocytes # 0.0 Myelocytes # 0.0 Promyelocytes # 0.0 Blast Cells # 0.0 WBC Morphology Not Reportable Hypersegmented Neuts Not Reportable Hyposegmented Neuts Not Reportable Hypogranular Neuts Not Reportable Smudge Cells Not Reportable Toxic Granulation Not Reportable Toxic Vacuolation Not Reportable Dohle Bodies Not Reportable Pelger-Huet Anomaly Not Reportable Dari Rods Not Reportable Platelet Estimate Consistent w auto Clumped Platelets Not Reportable Plt Clumps, EDTA Not Reportable Large Platelets Not Reportable Giant Platelets Not Reportable Platelet Satelliting Not Reportable Plt Morphology Comment Not Reportable RBC Morphology Not Reportable Dimorphic RBCs Not Reportable Polychromasia Not Reportable Hypochromasia Not Reportable Poikilocytosis Not Reportable Anisocytosis Rare Microcytosis Not Reportable Macrocytosis Not Reportable Spherocytes Not Reportable Pappenheimer Bodies Not Reportable Sickle Cells Not Reportable Target Cells Not Reportable Tear Drop Cells Not Reportable Ovalocytes Not Reportable Helmet Cells Not Reportable [place] Bodies Not Reportable Gerry Rings Not Reportable Aries Cells Not Reportable Bite Cells Not Reportable Crenated Cell Not Reportable Elliptocytes Not Reportable Acanthocytes (Spur) Not Reportable Rouleaux Not Reportable Hemoglobin C Crystals Not Reportable Schistocytes Not Reportable Malaria parasites Not Reportable Javy Bodies Not Reportable Hem Pathologist Commnt No Sodium 142 Potassium 4.2 Chloride 102.7 Carbon Dioxide 23 Anion Gap 21 BUN 16 Creatinine 1.1 Estimated GFR > 60 BUN/Creatinine Ratio 15 Glucose 172 H Calcium 9.0 Total Bilirubin 0.50 Direct Bilirubin < 0.2 Indirect Bilirubin 0.3 AST 19 ALT 18 Alkaline Phosphatase 82 Total Protein 6.6 Albumin 4.2 Albumin/Globulin Ratio 1.8 Lipase 42 Urine Color Yellow Urine Turbidity Clear Urine pH 6.0 Ur Specific [place] 1.012 Urine Protein <15 mg/dl Urine Glucose (UA) Neg Urine Ketones Neg Urine Blood Neg Urine Nitrite Neg Urine Bilirubin Neg Urine Urobilinogen < 2.0 Ur Leukocyte Esterase Neg Urine WBC (Auto) 2.0 Urine RBC (Auto) 2.0 U Epithel Cells (Auto) < 1.0 Assessment and Plan 1. N/V/D 2. Abdominal Pain 3. Abnormal CT scan -Agree with Flagyl and Levaquin. Will DC Zosyn. ( pt is on Flagyl, Levaquin and Zosyn) Likely infectious etiology. Check stool studies including C diff. -Ok for clear liquids if patient can tolerate -WBC improved -Will need colonoscopy once pt can tolerate PO ( not able to take prep at this time) -Pt is on daily ASA and Plavix ( would hold Plavix for now until decision regarding colonoscopy) -Will follow.
[2017-11-24] MEDS ORDERED: TYLENOL #3 PO PRN (12:00)
[2017-11-24] MEDS: FLAGYL 500 MG/100 ML 500 MG/100 ML BAG IV SCH ×2 (12:42→17:25)
[2017-11-24] MEDS: DITROPAN PO SCH ×2 (13:01→21:23)
[2017-11-24] MEDS: ROBAXIN PO SCH ×2 (13:01→21:23)
[2017-11-24] MEDS ORDERED: ALUM-MAG HYDROX-SIMETH 200-200-20MG/5ML PO PRN (20:05)
[2017-11-24] MEDS: IMODIUM PO PRN (20:18)
[2017-11-24] MEDS ORDERED: AMBIEN PO PRN (22:00)
[2017-11-24] MEDS ORDERED: PROTONIX PO ONE (22:00)
[2017-11-25] MEDS: FLAGYL 500 MG/100 ML 500 MG/100 ML BAG IV SCH ×2 (00:55→05:19)
[2017-11-25 05:16] LABS: Basophils % (Auto) 0.2 % (0.0-1.8); Eosinophils % (Auto) 0.6 % (0.0-4.3); Hematocrit 38.8 % (35.5-45.6); Hemoglobin 13.5 gm/dl (11.8-15.2); Mean Corpuscular HGB Conc 35 % (32-34); Mean Corpuscular Hemoglobin 32 pg (28-32); Mean Corpuscular Volume 93 fl (84-94); Platelet Count 211 K/mm3 (140-440); Red Blood Count 4.17 M/mm3 (3.65-5.03); Red Cell Distribution Width 13.9 % (13.2-15.2); White Blood Count 6.2 K/mm3 (4.5-11.0)
[2017-11-25] MEDS: IMODIUM PO PRN (05:59)
[2017-11-25 06:01] LABS: Anion Gap 19 mmol/L; BUN/Creatinine Ratio 11; Blood Urea Nitrogen 12 mg/dL (9-20); Calcium 8.2 mg/dL (8.4-10.2); Carbon Dioxide 21 mmol/L (22-30); Chloride 105.2 mmol/L (98-107); Glucose 97 mg/dL (75-100); Potassium 3.7 mmol/L (3.6-5.0); Sodium 141 mmol/L (137-145)
[2017-11-25 08:45] VITALS: BP 116/56
--- NOTE | 2017-11-25 09:43 | Gastroenterology Progress Note ---
Assessment and Plan 1. N/V/D 2. Abdominal Pain 3. Abnormal CT scan- showing possible colitis w/ rectal thickening and noted prominent lymph node -afebrile -WBC- WNL -N/V and abd pain now resolved -diarrhea significantly improved -will advance diet -continue supportive care -if pt tolerates diet, he is okay to be d/c per GI standpoint on PO Flagyl and Levaqin x 7 days with f/u appt in [address] Vang to schedule recommended outpatient colonoscopy -will sign off Subjective Date of service: 11/25/17 Principal diagnosis: colitis Interval history: Patient resting in bed. No acute distress or events overnight. Reports N/V has now resolved and is tolerating clears. States diarrhea has significantly improved with only BM x1 this am and none overnight. Denies abd pain. He states he is feeling much better and would like his diet advanced and to go home with doing colonoscopy as an outpatient. Objective - Constitutional Vitals: Temp Pulse Resp BP Pulse Ox 98.2 F 67 18 116/56 97 11/25/17 08:01 11/25/17 08:01 11/25/17 08:01 11/25/17 08:01 11/25/17 08:01 General appearance: no acute distress, well-nourished - EENT Eyes: PERRL, EOM intact ENT: hearing intact - Neck Neck: supple, normal ROM - Respiratory Respiratory: bilateral: CTA - Cardiovascular Rhythm: regular Heart Sounds: Present: S1 & S2 - Extremities Extremities: No edema - Gastrointestinal General gastrointestinal: Present: soft, non-tender, non-distended, normal bowel sounds - Integumentary Integumentary: Present: warm, dry - Neurologic Neurological: alert and oriented x3 - Labs CBC & Chem 7: 11/25/17 04:55 11/25/17 04:55 Labs: Laboratory Results - last 24 hr 11/24/17 11/25/17 11/25/17 10:52 04:55 04:55 WBC 6.2 RBC 4.17 Hgb 13.5 Hct 38.8 D MCV 93 MCH 32 MCHC 35 H RDW 13.9 Plt Count 211 Lymph % (Auto) 19.3 Placer % (Auto) 12.8 H Eos % (Auto) 0.6 Baso % (Auto) 0.2 Lymph # 1.2 Placer # 0.8 Eos # 0.0 Baso # 0.0 Seg Neutrophils % 67.1 Seg Neutrophils # 4.2 Sodium 141 Potassium 3.7 Chloride 105.2 Carbon Dioxide 21 L Anion Gap 19 BUN 12 Creatinine 1.1 Estimated GFR > 60 BUN/Creatinine Ratio 11 Glucose 97 Lactic Acid 2.10 H* Calcium 8.2 L
[2017-11-25] MEDS: PLAVIX PO SCH (09:57)
[2017-11-25] MEDS: LEVAQUIN 500MG/100ML 500 MG/100 ML BAG IV SCH (09:57)
[2017-11-25] MEDS: LOVENOX SUB-Q SCH (09:58)
[2017-11-25] MEDS: DITROPAN PO SCH (09:58)
[2017-11-25] MEDS: ROBAXIN PO SCH (09:58)
[2017-11-25] MEDS ORDERED: PROTONIX IV SCH (10:00)
[2017-11-25] MEDS ORDERED: PEPCID IV SCH (10:00)
[2017-11-25] MEDS: COZAAR PO SCH (10:29)
--- NOTE | 2017-11-25 11:11 | Discharge Summary ---
Providers - Providers Date of Admission: 11/24/17 08:15 Date of discharge: 11/25/17 Attending physician: NHAN BARRAZA 11/24/17 08:24 Consult to Physician [CONS] Routine Consulting Provider: MICHELLE MCDOWELL Reason For Exam: possible colitis Place consult to:: Edwige SANTOYO Notified:: Edwige HINTON Phone number called:: [phone] Was contact made?: Yes If yes, spoke with:: GEOVANNI Time called:: 10:17 Comment:: HUMA Primary care physician: SHARA PRICE Hospitalization Condition: Stable Hospital course: per GI: "1. N/V/D 2. Abdominal Pain 3. Abnormal CT scan- showing possible colitis w/ rectal thickening and noted prominent lymph node -afebrile -WBC- WNL -N/V and abd pain now resolved -diarrhea significantly improved -will advance diet -continue supportive care -if pt tolerates diet, he is okay to be d/c per GI standpoint on PO Flagyl and Levaqin x 7 days with f/u appt in [address] Vang to schedule recommended outpatient colonoscopy -will sign off" CT abdomen/pelvis with IV contrast reported as fluid in the cecum and ascending colon or bowel suggested mucosal thickening in the ascending colon may be infectious, no findings of abena colitis, no pneumo peritoneal or abscess formation, mild rectal wall thickening with adjacent prominent lymph node in the mesorectal fat, differential diagnosis includes malignancy, colonoscopy is suggested recently performed. Disposition: DC-01 TO HOME OR SELFCARE Time spent for discharge: 32 minutes Core Measure Documentation - Palliative Care Palliative Care/ Comfort Measures: Not Applicable - Core Measures Any of the following diagnoses?: none - VTE Discharge Requirements Deep Vein Thrombosis/Pulmonary Embolism Present on Admission: No Has pt received <5 days of overlap therapy or INR<2.0: No Anticoagulant overlap therapy prescribed at discharge: No Contraindication No Overlap Therapy order at DC: Not Indicated Exam - Physical Exam Narrative exam: GEN: WDWN, NAD, AWAKE, ALERT, ORIENTATED 3 HEENT: NCAT, EOMI, PERRL, OP Clear NECK: supple, no adenopathy, no thyromegaly, no JVD CVS/HEART: RRR, NORMAL S1S2, NO JVD, pulses present bilaterally CHEST/LUNGS: CTA B, Symmetrical chest expansion, good air entry bilaterally GI/Abdomen: soft, NTND, good bowel sounds, no guarding or rebound /Bladder: no suprapubic tenderness, no CVA or paraspinal tenderness EXT/Skin: no c/c/e, no obvious rash MSK: FROM x 4 Neuro: CN 2-12 grossly intact, no new focal deficits Psych: calm - Constitutional Vitals: Temp Pulse Resp BP Pulse Ox 98.2 F 67 18 116/56 97 11/25/17 08:01 11/25/17 10:29 11/25/17 08:01 11/25/17 10:29 11/25/17 08:01 Plan Activity: other (no strenous activity until cleared by pcp) Diet: clear liquids (advance as tolerate) Additional Instructions: Follow up with GI, Dr. Cerna, in a week, need colonoscopy outpatient Follow up with: SHARA PRICE MD [Primary Care Provider] - 3-5 Days Prescriptions: Levofloxacin [Levaquin TAB] 500 mg PO DAILY #7 day metroNIDAZOLE [Flagyl] 500 mg PO TID #7 day
== END 2017-11-25 13:30 | disposition home or self-care (01) | DRG 872 ==
LOC: ED 02:36 → 2B-ACE 08:15
PROVIDERS: ADMIT Internal Medicine; ATTEND Internal Medicine
DX: A41.9 Sepsis, unspecified organism (principal); K52.9 Noninfective gastroenteritis and colitis, unspecified; R59.1 Generalized enlarged lymph nodes; I10 Essential (primary) hypertension; K21.9 Gastro-esophageal reflux disease without esophagitis; E78.5 Hyperlipidemia, unspecified; Z79.82 Long term (current) use of aspirin; Z79.899 Other long term (current) drug therapy; Z95.5 Presence of coronary angioplasty implant and graft; Z72.89 Other problems related to lifestyle; Z82.49 Family history of ischemic heart disease and other diseases of the circulatory system
CPT/HCPCS: 36415; 74177; 80048; 80074; 81001; 82140; 83690; 85007; 85025; 87040; 87045; 93005; 93010; 96361; 96365; 96367; 96372; 96375; C9113; J1650; J1956; J2405; J2543; J2765; J7030; Q9967